=== PATIENT | male | born 1985 | race Caucasian/White ===

== ENCOUNTER 2018-02-14 19:24 | Emergency (ER) | payer MEDICARE, OTHER ==
[~2018-02-14] VITALS: Ht 170.2 cm; Wt 71.7 kg
[~2018-02-14 19:24] MED LIST: LORA-258 PO
[2018-02-14] MEDS ORDERED: IV D5/0.45 NACL 1,000 ML IV ONE ×2 (20:00→20:30)
[2018-02-14] MEDS ORDERED: IV NS 0.9% 500 ML BAG IV ONE (20:00)
[2018-02-14] MEDS ORDERED: LORAZEPAM INJ 2 MG/ML VIAL IVP ONE (20:00)
[2018-02-14 20:01] LABS: BASOPHILS # (AUTO) 0.1 /CMM (0.0-0.2); BASOPHILS % (AUTO) 0.7 % (0.0-2.0); EOSINOPHILS % (AUTO) 3.7 % (0.0-6.0); HEMATOCRIT 41 % (39-51); HEMOGLOBIN 13.8 g/dL (13.5-17.5); LYMPHOCYTES # (AUTO) 1.2 /CMM (0.8-4.8); LYMPHOCYTES % (AUTO) 9.7 % (20.0-44.0); MEAN CORPUSCULAR HGB CONC 34 g/dl (31.0-36.0); MEAN CORPUSCULAR VOLUME 84 fL (80-96); MONOCYTES # (AUTO) 1.1 /CMM (0.1-1.30); MONOCYTES % (AUTO) 8.9 % (2.0-12.0); NEUTROPHILS # (AUTO) 9.7 /CMM (1.8-8.9); PLATELET COUNT (AUTO) 250 /CMM (150-450); RED BLOOD CELL COUNT(AUTO) 4.89 MIL/uL (4.5-6.0); WHITE BLOOD COUNT (AUTO) 12.6 K/uL (4.3-11.0)
[2018-02-14] MEDS ORDERED: LORAZEPAM INJ 2 MG/ML VIAL ONE (20:07)
[2018-02-14 20:12] LABS: CALCIUM, SERUM 9.3 mg/dL (8.5-10.1); CARBON DIOXIDE 25 mmol/L (21-32); CHLORIDE 99 mmol/L (98-107); CREATININE 1.2 mg/dL (0.6-1.3); GLUCOSE 68 mg/dL (74-106); POTASSIUM 4.6 mmol/L (3.5-5.1); SODIUM SERUM 134 mmol/L (136-145); UREA NITROGEN, BLOOD 36 mg/dL (7-18)
[2018-02-14] MEDS ORDERED: diphenhydrAMINE HCL 50 MG/ML VIAL ONE (20:18)
[2018-02-14] MEDS ORDERED: HALOPERIDOL LACTATE INJ 5 MG/ML VIAL ONE (20:18)
[2018-02-14 20:19] LABS: ACETAMINOPHEN 1 ug/ml (10-30); ALANINE AMINOTRANSFERASE 26 U/L (12-78); ALBUMIN 4.4 g/dL (3.4-5.0); ALKALINE PHOSPHATASE 125 U/L (46-116); ASPARTATE AMINOTRANSFERASE 36 U/L (15-37); BILIRUBIN,DIRECT 0.1 mg/dL (0.0-0.2); BILIRUBIN,TOTAL 0.6 mg/dL (0.2-1.0); TOTAL PROTEIN, SERUM 7.6 g/dL (6.4-8.2)
[2018-02-14 20:23] LABS: ALCOHOL, BLOOD < 3 mg/dL (0-0); SALICYLATE 1.8 mg/dL (2.8-20.0)
--- NOTE | 2018-02-14 20:24 | NUR ---
33 Y/O MALE C/O ALTER MENTAL STATUS PLACED IN BED 15. PT EXTREMELY RESTLESS AND ALL OVER THE BED. FEARFUL THAT PT MAY HURT HIMSELF WITH MOVEMENT, PT RESTRAINED BILATERAL HANDS. IV 20G PLACED LEFT ARM. BLOOD OBTAINED AND SENT. IVF RUNING. PT MEDICATED TO CALM HIM DOWM.
[2018-02-14] MEDS ORDERED: HALOPERIDOL LACTATE INJ 5 MG/ML VIAL IM ONE (20:30)
[2018-02-14] MEDS ORDERED: diphenhydrAMINE HCL 50 MG/ML VIAL IV ONE (20:30)
[2018-02-14] MEDS ORDERED: diphenhydrAMINE HCL 50 MG/ML VIAL IM ONE (20:30)
[2018-02-14] MEDS ORDERED: LORAZEPAM INJ 2 MG/ML VIAL IV ONE (21:00)
--- NOTE | 2018-02-14 21:03 | NUR ---
STEFANEI OBTAINED AND SENT TO LAB
[2018-02-14 21:14] LABS: APPEARANCE,URINE Clear (CLEAR); BILIRUBIN,URINE Negative (NEGATIVE); BLOOD, URINE Negative Ery/uL (NEGATIVE); COLOR,URINE Yellow (YELLOW); KETONES,URINE 15 (NEGATIVE); LEUKOCYTE ESTERASE ,URINE Negative (NEGATIVE); NITRITE, URINE Negative (NEGATIVE); PH,URINE 5.5 (5.0-8.0); PROTEIN,URINE Negative (NEGATIVE); UGLUCOSE Negative (NEGATIVE); UROBILINOGEN,URINE 0.2 EU/dL (0.2)
--- NOTE | 2018-02-14 22:00 | NUR ---
RESTRAINTS RELEASED. PT SLEEPING COMFORTABLY.
--- NOTE | 2018-02-14 23:29 | NUR ---
ASSUMED CARE OF PT AT THIS TIME FROM PRIMARY NURSE CAYLA. PT ON MONITOR. NAD NOTED AT THIS TIME. RESP EVEN AND UNLABORED. WILL CONTINUE TO MONITOR.
--- NOTE | 2018-02-15 00:59 | NUR ---
RESTING SUPINE WITH NO S/S OF DISTRESS. RESP EVEN AND UNLABORED. ON MONITOR.
--- NOTE | 2018-02-15 01:57 | NUR ---
REMAINS RESTING LAYING LT SIDE WITH NO S/S OF DSITRESS. RESP EVEN AND UNLABORED. WILL CONTINUE TO MONITOR PT.
--- NOTE | 2018-02-15 03:33 | NUR ---
LYING SUPINE. INTERMITTENTLY WAKES UP AND FALLS RIGHT BACK TO SLEEP. NAD NOTED
--- NOTE | 2018-02-15 04:42 | NUR ---
Ambulatory with a steady gait to the restroom. DENIES SI/HI OR ANY MEDICAL C/O. Patient discharged to home in stable condition. Written and verbal after care instructions given. Patient verbalizes understanding of instruction. IV removed. Catheter intact and site benign. Pressure and 4x4 applied to site. No bleeding noted.
[2018-02-15 04:43] VITALS: BP 134/75
== END 2018-02-15 04:43 | disposition home or self-care (01) ==
LOC: ER 19:25
DX: F15.229 Other stimulant dependence with intoxication, unspecified (principal); R41.82 Altered mental status, unspecified; F31.9 Bipolar disorder, unspecified; F41.9 Anxiety disorder, unspecified; F90.9 Attention-deficit hyperactivity disorder, unspecified type; Z79.899 Other long term (current) drug therapy
CPT/HCPCS: 36415; 51701; 80048; 80076; 80305; 81001; 82962; 85025; 96361; 96372; 96374; 96375; 99283; A4606; G0480 ×2; J1200; J1630; J2060; J7030; 81000-TC; Z7610

== ENCOUNTER 2019-03-06 17:19 | Emergency (ER) | payer MEDICARE, OTHER ==
[~2019-03-06] VITALS: Ht 177.8 cm; Wt 79.4 kg
--- NOTE | 2019-03-06 17:20 | NUR ---
BIBRA[employer] & [employer], FROM THE STREET, OVERDOSED ON "SUBOXONE." PT PLACED IN BED 15. CONNECTED TO MONITOR AND PULSE OX. NO ACUTE DISTRESS.
[2019-03-06 17:50] LABS: BASOPHILS # (AUTO) 0.1 /CMM (0.0-0.2); BASOPHILS % (AUTO) 0.6 % (0.0-2.0); EOSINOPHILS % (AUTO) 0.8 % (0.0-6.0); HEMATOCRIT 35 % (39-51); HEMOGLOBIN 11.7 g/dL (13.5-17.5); LYMPHOCYTES # (AUTO) 1.2 /CMM (0.8-4.8); LYMPHOCYTES % (AUTO) 11.1 % (20.0-44.0); MEAN CORPUSCULAR HGB CONC 33 g/dl (31.0-36.0); MEAN CORPUSCULAR VOLUME 83 fL (80-96); MONOCYTES # (AUTO) 0.8 /CMM (0.1-1.30); MONOCYTES % (AUTO) 7.5 % (2.0-12.0); NEUTROPHILS # (AUTO) 8.9 /CMM (1.8-8.9); PLATELET COUNT (AUTO) 251 /CMM (150-450); RED BLOOD CELL COUNT(AUTO) 4.25 MIL/uL (4.5-6.0); WHITE BLOOD COUNT (AUTO) 11.2 K/uL (4.3-11.0)
[2019-03-06 17:54] LABS: CARBON DIOXIDE 25 mmol/L (21-32); CHLORIDE 95 mmol/L (98-107); CREATININE 0.8 mg/dL (0.6-1.3); GLUCOSE 79 mg/dL (74-106); POTASSIUM 4.6 mmol/L (3.5-5.1); SODIUM SERUM 130 mmol/L (136-145); UREA NITROGEN, BLOOD 26 mg/dL (7-18)
[2019-03-06 18:00] LABS: ALANINE AMINOTRANSFERASE 50 U/L (12-78); ALBUMIN 3.8 g/dL (3.4-5.0); ALCOHOL, BLOOD < 3 mg/dL (0-0); ALKALINE PHOSPHATASE 120 U/L (46-116); ASPARTATE AMINOTRANSFERASE 89 U/L (15-37); BILIRUBIN,DIRECT 0.2 mg/dL (0.0-0.2); BILIRUBIN,TOTAL 0.8 mg/dL (0.2-1.0); TOTAL PROTEIN, SERUM 6.8 g/dL (6.4-8.2)
[2019-03-06] MEDS ORDERED: IV NS 0.9% 1,000 ML BAG IV ONE (18:00)
[2019-03-06 18:01] LABS: ACETAMINOPHEN 0 ug/ml (10-30); SALICYLATE 0.3 mg/dL (2.8-20.0)
[2019-03-06] MEDS ORDERED: LORAZEPAM INJ 2 MG/ML VIAL IV ONE (19:00)
[2019-03-06] MEDS ORDERED: IV NS 0.9% 1,000 ML IV ONE (19:00)
[2019-03-06] MEDS ORDERED: LORAZEPAM INJ 2 MG/ML VIAL ONE (19:07)
[2019-03-06] MEDS ORDERED: OLANZAPINE 5 MG TABLET PO ONE (19:30)
[2019-03-06] MEDS ORDERED: OLANZAPINE 5 MG TABLET ONE (19:31)
--- NOTE | 2019-03-06 19:36 | NUR ---
PT IN BED COMFORTABLY.
--- NOTE | 2019-03-06 20:26 | NUR ---
Patient is resting comfortably in bed. Easily aroused. VSS.
--- NOTE | 2019-03-06 22:57 | NUR ---
Patient is resting comfortably in bed with eyes closed. Easily aroused. VSS.
--- NOTE | 2019-03-07 00:08 | NUR ---
PT RESTING COMFORTABLY. VSS.
--- NOTE | 2019-03-07 01:45 | NUR ---
PT ASLEEP. VSS.
--- NOTE | 2019-03-07 04:27 | NUR ---
Patient is resting comfortably in bed with eyes closed. Easily aroused. VSS
--- NOTE | 2019-03-07 06:04 | NUR ---
IV removed. Catheter intact and site benign. Pressure and 4x4 applied to site. No bleeding noted.
--- NOTE | 2019-03-07 07:06 | NUR ---
pt ok to discharge per dr benjamin. Patient discharged to home in stable condition. Written and verbal after care instructions given. Patient verbalizes understanding of instruction.Patient is awake and alert to self, day, and place. pt ambulatory with a steady gait
[2019-03-07 07:07] VITALS: BP 136/80
--- NOTE | 2019-03-07 10:02 | NUR ---
[facility] MB RESULT CALLED IN BY LAB, HOME PHONE CALLED AND LEFT A MESSAGE FOR PATIENT TO CALL BACK
== END 2019-03-07 07:07 | disposition home or self-care (01) ==
LOC: ER 17:34
DX: S40.022A Contusion of left upper arm, initial encounter (principal); S40.021A Contusion of right upper arm, initial encounter; S80.12XA Contusion of left lower leg, initial encounter; S80.11XA Contusion of right lower leg, initial encounter; M62.82 Rhabdomyolysis; F19.10 Other psychoactive substance abuse, uncomplicated; E86.0 Dehydration; F90.9 Attention-deficit hyperactivity disorder, unspecified type; J45.909 Unspecified asthma, uncomplicated; F10.10 Alcohol abuse, uncomplicated; Z59.0 Homelessness; Y90.0 Blood alcohol level of less than 20 mg/100 ml; X58.XXXA Exposure to other specified factors, initial encounter; Y93.89 Activity, other specified; Y92.89 Other specified places as the place of occurrence of the external cause; Y99.8 Other external cause status
CPT/HCPCS: 36415; 80048; 80076; 80307; 80329; 82550; 85025; 96361; 96374; 99283; A4349; G0480; J2060; J7030 ×3

== ENCOUNTER 2019-04-08 11:20 | Emergency (ER) | payer MEDICARE, OTHER ==
[~2019-04-08] VITALS: Ht 177.8 cm; Wt 79.4 kg
--- NOTE | 2019-04-08 11:29 | NUR ---
[facility] [employer] AND [employer] FROM [facility], NOT IN CUSTODY, REPORTED TO HAVE TAKEN "A BUNCH OF METH' LAST USE UNKNOWN, WAS COMBATIVE AGITATED AND HAVING DELIRIUM "SMACKING HEAD ON WALL". 5MG VERSED GIVEN EN ROUTE. TO ER BED 14, DR BEASLEY AT BEDSIDE, SITTER 1:1 AT BEDSIDE, CHANGED TO HOSP GOWN. AWAITING MD ORDERS.
[2019-04-08] MEDS ORDERED: diphenhydrAMINE HCL 50 MG/ML VIAL IM ONE (11:30)
[2019-04-08] MEDS ORDERED: HALOPERIDOL LACTATE INJ 5 MG/ML VIAL IM ONE (11:30)
[2019-04-08] MEDS ORDERED: LORAZEPAM INJ 2 MG/ML VIAL IM ONE (11:30)
[2019-04-08] MEDS ORDERED: diphenhydrAMINE HCL 50 MG/ML VIAL ONE (11:35)
[2019-04-08] MEDS ORDERED: HALOPERIDOL LACTATE INJ 5 MG/ML VIAL ONE (11:35)
[2019-04-08] MEDS ORDERED: LORAZEPAM INJ 2 MG/ML VIAL ONE (11:36)
--- NOTE | 2019-04-08 11:47 | NUR ---
IN AND OUT ROY CATHETER INSERTED, URINE COLLECTED AND SENT TO LAB
--- NOTE | 2019-04-08 11:51 | NUR ---
URINE SAMPLE COLLECTED VIA STRAIGHT CATHETER
[2019-04-08 11:57] LABS: APPEARANCE,URINE Clear (CLEAR); BILIRUBIN,URINE SMALL (NEGATIVE); BLOOD, URINE Trace-intact Ery/uL (NEGATIVE); COLOR,URINE Yellow (YELLOW); KETONES,URINE 15 (NEGATIVE); LEUKOCYTE ESTERASE ,URINE Negative (NEGATIVE); NITRITE, URINE Negative (NEGATIVE); PH,URINE 5.5 (5.0-8.0); PROTEIN,URINE 30 mg/dl (NEGATIVE); UGLUCOSE Negative (NEGATIVE); UROBILINOGEN,URINE 0.2 EU/dL (0.2)
[2019-04-08 12:00] LABS: RBC,URINE 0-2 /HPF (0-2); WBC,URINE 0-2 /HPF (0-3)
[2019-04-08 12:01] LABS: BACTERIA,URINE Rare /HPF (None Seen); SQUAMOUS EPITHELIAL CELL,UR Few /HPF (None Seen)
[2019-04-08 12:20] LABS: BASOPHILS % (AUTO) 0.4 % (0.0-2.0); EOSINOPHILS % (AUTO) 0.4 % (0.0-6.0); HEMATOCRIT 36 % (39-51); HEMOGLOBIN 12.2 g/dL (13.5-17.5); LYMPHOCYTES # (AUTO) 0.7 /CMM (0.8-4.8); LYMPHOCYTES % (AUTO) 6.8 % (20.0-44.0); MEAN CORPUSCULAR HGB CONC 34 g/dl (31.0-36.0); MEAN CORPUSCULAR VOLUME 83 fL (80-96); MONOCYTES % (AUTO) 9.5 % (2.0-12.0); NEUTROPHILS # (AUTO) 8.4 /CMM (1.8-8.9); NEUTROPHILS % (AUTO) 82.9 % (43.0-81.0); PLATELET COUNT (AUTO) 200 /CMM (150-450); WHITE BLOOD COUNT (AUTO) 10.2 K/uL (4.3-11.0)
[2019-04-08 12:45] LABS: CALCIUM, SERUM 9.2 mg/dL (8.5-10.1); CARBON DIOXIDE 25 mmol/L (21-32); CHLORIDE 101 mmol/L (98-107); CREATININE 0.9 mg/dL (0.6-1.3); GLUCOSE 66 mg/dL (74-106); POTASSIUM 4.5 mmol/L (3.5-5.1); SODIUM SERUM 140 mmol/L (136-145); UREA NITROGEN, BLOOD 36 mg/dL (7-18)
[2019-04-08 12:56] LABS: ACETAMINOPHEN 0 ug/ml (10-30); ALANINE AMINOTRANSFERASE 50 U/L (12-78); ALBUMIN 4.2 g/dL (3.4-5.0); ALKALINE PHOSPHATASE 132 U/L (46-116); ASPARTATE AMINOTRANSFERASE 101 U/L (15-37); BILIRUBIN,DIRECT 0.2 mg/dL (0.0-0.2); SALICYLATE 2.1 mg/dL (2.8-20.0); TOTAL PROTEIN, SERUM 7.7 g/dL (6.4-8.2)
[2019-04-08 13:03] LABS: ALCOHOL, BLOOD < 3 mg/dL (0-0)
--- NOTE | 2019-04-08 13:42 | NUR ---
PATIENT IN BED ASLEEP, EASILY AROUSABLE BY OICE, CALM AT THIS TIME. HOOKED TO MONITOR, WILL CONTINUE TO MONITOR ACCORDINGLY
--- NOTE | 2019-04-08 15:22 | NUR ---
PATIENT IN BED ASLEEP, EASILY AROUSABLE BY VOICE, CALM AT THIS TIME. HOOKED TO MONITOR, WILL CONTINUE TO MONITOR ACCORDINGLY
[2019-04-08] MEDS ORDERED: IV NS 0.9% 1,000 ML BAG IV ONE ×2 (16:00)
--- NOTE | 2019-04-09 05:39 | NUR ---
PT OK TO DISCHARGE PER DR MORENO. A/OX3. DENIES SI HI. PT PROVIDED WITH FOOD AND DRINK
--- NOTE | 2019-04-09 05:44 | NUR ---
Patient discharged to home in stable condition. Written and verbal after care instructions given. Patient refuses to sign discharge paper work and homeless waiver. Patient is awake and alert to self, day, and place. PT ambulatory with a steady gait
[2019-04-09 05:47] VITALS: BP 128/88
== END 2019-04-09 05:47 | disposition home or self-care (01) ==
LOC: ER 11:21
DX: R45.1 Restlessness and agitation (principal); E86.0 Dehydration; F15.10 Other stimulant abuse, uncomplicated; R41.82 Altered mental status, unspecified; F10.10 Alcohol abuse, uncomplicated; J45.909 Unspecified asthma, uncomplicated; F41.9 Anxiety disorder, unspecified; F31.9 Bipolar disorder, unspecified; Y90.0 Blood alcohol level of less than 20 mg/100 ml; Z79.899 Other long term (current) drug therapy; Z59.0 Homelessness
CPT/HCPCS: 36415; 80048; 80076; 80305; 80307; 80329; 81001; 85025; 96360; 96372 ×3; 99283; G0480; J1200; J1630; J2060; J7030; 81000-TC